=== PATIENT | male | born 1985 | race Hispanic/Latino ===

== ENCOUNTER → 2021-05-27 13:01 | Outpatient (CLI) | payer OTHER, SELFPAY ==
--- NOTE | 2021-05-27 | DI.MRI.S_ITS ---
PROCEDURE: MR KNEE LT WO CON INDICATIONS: Sprain of medial collateral ligament of left knee, TECHNIQUE: Noncontrast sagittal PD fast spin echo and T2 fast spin echo with fat saturation, sagittal 3-D FLASH with fat saturation; coronal T1 spin echo and PD fast spin echo with fat saturation, and axial PD fast spin echo with fat saturation through the knee. COMPARISON: None. FINDINGS: Image quality: Excellent. Menisci: The medial and lateral menisci demonstrate normal morphology and internal signal. The meniscal root ligaments appear intact. Cruciate ligaments: The anterior and posterior cruciate ligaments appear intact. Medial structures: The medial collateral ligament appears intact. The posterior oblique ligament, semimembranosus tendon insertions, oblique popliteal ligament, and meniscocapsular junction appear intact. Visualized portions of the pes anserinus tendons appear normal. Bursal fluid is seen, measuring 1.4 x 0.6 cm. Lateral structures: The lateral collateral ligament, long and short heads of the biceps femoris tendon appear intact. The popliteus tendon appears normal; the popliteofibular ligament appears intact. The posterosuperior and anteroinferior popliteomeniscal fascicles appear intact. The arcuate and fabellofibular ligaments appear intact, on either side of the lateral inferior geniculate artery. Iliotibial band appears normal. Anterior structures: The quadriceps and patellar tendons appear intact. Patellar alignment is normal. No femoral trochlear dysplasia or ventral trochlear prominence. No edema in the infrapatellar fat pad. Bones and cartilage: No bone marrow contusions or fractures. Minimal signal heterogeneity and fissuring of the trochlear cartilage The remain cartilage of the medial and lateral femorotibial compartments, as well as the patellofemoral compartment, appears normal in thickness. Joint space: Small knee joint fluid. Trace Chaparro's cyst. Normal appearing synovial plicae are incidentally noted. IMPRESSION: 1. Pes anserine bursitis. 2. Mild chondromalacia of the trochlear cartilage. Dictated by: Jason Muhammad M.D. on 05/27/2021 at 14:47 Approved by: aJson Muhammad M.D. on 05/27/2021 at 14:51
== END ==
PROVIDERS: Referring Provider Orthopaedic Surgery; Visit Provider Orthopaedic Surgery
DX: S83.412A Sprain of medial collateral ligament of left knee, initial encounter (principal); M94.262 Chondromalacia, left knee; M70.52 Other bursitis of knee, left knee
CPT/HCPCS: 73721

== ENCOUNTER → 2021-07-12 13:39 | Outpatient (CLI) | payer OTHER, SELFPAY ==
--- NOTE | 2021-07-12 13:41 | DI.MRI.S_ITS ---
PROCEDURE: MR HAND RT WO CON INDICATIONS: SPRAIN OF METACARPOPHALANGEAL JOINT/FINGER TECHNIQUE: Noncontrast coronal T1 spin echo and T2 fast spin echo with fat saturation, axial proton density fast spin echo and T2 fast spin echo with fat saturation, sagittal T1 spin echo and STIR through the hand and fingers. COMPARISON: [facility] [place], CR, XR HAND 3+ VIEWS RIGHT, 05/09/2021, 14:26. FINDINGS: Image quality: Excellent. Bones: The bones are normally aligned, without marrow contusions or fractures. No intra-osseous lesions. Interphalangeal joint(s): The collateral ligaments appear intact. The volar plate demonstrates normal morphology. The extensor central slips appear intact on sagittal images. Metacarpophalangeal joint(s): The collateral ligaments appear intact, as well as the volar plate and adjacent deep transverse metacarpal ligaments. The sagittal bands of the extensor mata appear normal. Extensor apparatus: The central slips insert normally on the middle phalangeal base. The conjoint and terminal tendons insert normally on the distal phalangeal bases. More proximal portions of the extensor tendons also appear normal. Flexor apparatus: The flexor digitorum superficialis and profundus tendons both appear intact. All pulleys appear intact, without adjacent soft tissue edema. Soft tissues: Visualized muscles demonstrate normal bulk and internal signal. No intramuscular masses identified. No ganglion cysts. IMPRESSION: No significant abnormality. Dictated by: Jason Muhammad M.D. on 07/12/2021 at 19:07 Approved by: Jason Muhammad M.D. on 07/12/2021 at 19:12
== END ==
PROVIDERS: Referring Provider Orthopaedic Surgery; Visit Provider Orthopaedic Surgery
DX: S63.65 Sprain of metacarpophalangeal joint of other and unspecified finger(s) (principal); X58.XXXS Exposure to other specified factors, sequela
CPT/HCPCS: 73218

== ENCOUNTER 2021-09-23 08:40 | Emergency (ER) | payer OTHER, SELFPAY ==
--- NOTE | 2021-09-23 09:19 | ED_ITS ---
HPI - Skin/Abscess/Foreign Bdy General Chief complaint: Wound/Laceration Stated complaint: dog bite Time Seen by Provider: 09/23/21 09:12 History of Present Illness HPI narrative: Patient is a healthy 36-year-old male who presents with left thumb laceration and dog bite. He said last night he was feeding his dog they are known to have food of depression. His dog was in the kennel but the door was not shot all of way well he was feeding a little dogs big dog came and a sharp tooth got right across his thumb. He rinsed it out and washed it came in this morning it still hurts. It still mildly bleeding. Dog's shots and patient's shots are up-to-date. He has children at home. We discussed dog bites. He says it only happens around food kids are not around when he feeds the dogs. Related Data Previous Rx's Medication Instructions Recorded amoxicillin 875 mg-potassium 1 tab PO BID #14 tab 09/23/21 clavulanate 125 mg tablet Allergies Allergy/AdvReac Type Severity Reaction Status Date / Time No Known Drug Allergies Allergy Verified 09/23/21 09:33 Review of Systems Review of Systems Narrative: GENERAL: Denies chills,fever HEENT: Denies throat pain RESPIRATORY: Denies dyspnea, cough, wheezing CARDIOVASCULAR: Denies chest pain, palpitations GASTROINTESTINAL: Denies nausea, vomiting MUSCULOSKELETAL: Denies extremity pain, injury SKIN: lacertation, see HPI NEUROLOGIC: Denies weakness, dizziness, headache, numbness 8 point review of systems is negative except for those stated above and HPI Patient History Social History Smoking Status: Former smoker Exam Initial Vital Signs Initial Vital Signs: Vital Signs Temperature 98.4 F 09/23/21 09:20 Pulse Rate 70 09/23/21 09:20 Respiratory Rate 16 09/23/21 09:20 Blood Pressure 178/94 H 09/23/21 09:20 Pulse Oximetry 98 09/23/21 09:20 GENERAL: Well-appearing, well-nourished and in no acute distress. CARDIOVASCULAR: peripheral pulses in tact, cap refill <2 sec RESPIRATORY: No respiratory distress, speaks in full sentences without difficulty EXTREMITIES: Normal range of motion, no clubbing or edema. Neurovascularly intact, Left thumb sensation in intact at tip it hurts to flex but he is able to do so however does open the laceration NEUROLOGICAL: Cranial nerves II through XII grossly intact. Normal gait and speech. SKIN: Left thumb laceration 2cm at ED DIP Course Orders Ordered: Discontinued Medications Ibuprofen (Ibuprofen 400 Mg Tablet) 800 mg PO NOW ONE Stop: 09/23/21 09:35 Last Admin: 09/23/21 09:41 Dose: 800 mg Documented by: ASHTYN Vital Signs Vital signs: Vital Signs - 8 hr 09/23/21 09:20 Temperature 98.4 F Pulse Rate 70 Respiratory Rate 16 Blood Pressure 178/94 H Pulse Oximetry 98 MDM - Skin/Abscess/Foreign Bdy MDM Narrative Medical decision making narrative: Wound has been open for about 12 hours. Not safe to close at this time Steri- Strips were placed. Patient states that he saw his tendon last night and he sure it was intact. He is able to bend it is I do not see tendon at this time. It is swollen. He is given antibiotics. I instructed him to watch it very carefully I do worry about this getting significantly more infected however he has minimal erythema at this time. Discharge Plan Departure Patient Disposition: Home Clinical Impression: Dog bite of left thumb Instructions: Animal Bites Activity Restrictions/Additional Instructions: *You have been diagnosed with dog bite *What to do: At this time please elevate and ice. Monitor very carefully so that he attended does not get infected *Continue to take medications as directed Augmentin 875 mg twice a day X 7 days Motrin 800 mg every 8 hours needed for [id number] pain Tylenol 650 mg every 6 hours if needed for [id number] pain *Follow up with your primary care provider in 2-3 days or call [phone] *Return to ER if you should have increasing redness pain throbbing or any new, worsening or concerning symptoms Prescriptions: New amoxicillin-pot clavulanate 875-125 mg tablet 1 tab PO BID Qty: 14 0RF
[2021-09-23 09:20] VITALS: BP 178/94; PULSE 70; RESP 16; TEMP 36.9; O2SAT 98; BMI 29.0
[2021-09-23] MEDS: IBUPROFEN 400 MG TABLET 800 MG PO (09:41)
== END 2021-09-23 10:14 | disposition home or self-care (01) ==
PROVIDERS: Emergency Provider Emergency Medicine
DX: S61.052A Open bite of left thumb without damage to nail, initial encounter (principal); W54.0XXA Bitten by dog, initial encounter
CPT/HCPCS: 99282; 99283

== ENCOUNTER 2023-05-23 17:45 | Emergency (ER) | payer OTHER, SELFPAY ==
[2023-05-23 17:50] VITALS: BP 132/85; PULSE 70; RESP 16; TEMP 36.7; O2SAT 98; BMI 28.7
--- NOTE | 2023-05-23 18:24 | ED.URI ---
HPI - URI/Sore Throat <Corrine Clarke PA-C - Last Filed: 05/23/23 18:27> General Chief Complaint: Upper Respiratory Symptoms Stated Complaint: cough x 4 days Time Seen by Provider: 05/23/23 18:22 Source: patient Mode of arrival: Family Vehicle History of Present Illness HPI Narrative: Patient is a 38-year-old male nonsmoker with no significant past medical history. He presents with his 2 young sons. He has had a cough and intermittent sore throat x2 weeks. He denies fever or chills. He has a history of recurrent strep throat with a peritonsillar abscess. He has been trying to take DayQuil and drink plenty of water. He denies any difficulty breathing, chest pain or shortness of breath, except when coughing. He took a home COVID test and it was negative. Related Data Allergies Allergy/AdvReac Type Severity Reaction Status Date / Time No Known Drug Allergies Allergy Verified 09/23/21 09:33 Review of Systems <Corrine Clarke PA-C - Last Filed: 05/23/23 18:27> Review of Systems ROS Unobtainable: All systems reviewed & are unremarkable except as noted in HPI and below Patient History <Corrine Clarke PA-C - Last Filed: 05/23/23 18:27> Social History Smoking Status: Former smoker Smoking Status: Former smoker alcohol intake frequency: 0-2 drinks per day Substance Use Type: does not use Exam <Corrine Clarke PA-C - Last Filed: 05/23/23 18:27> Narrative Exam Narrative: GENERAL: 38 year old patient appears stated age. Well-developed patient, in no acute distress. NEURO: AOx3. HEAD: Atraumatic. Normocephalic. EYES: Pupils equal round and reactive. Extraocular motions intact. No scleral icterus. No injection or drainage. ENT: Nose without bleeding or purulent drainage. TMs pearly palmer. Throat with mild erythema, no tonsillar hypertrophy or exudate. Uvula midline. Airway patent. NECK: Trachea midline. Tender left anterior cervical adenopathy. CARDIOVASCULAR: Regular rate and rhythm without murmurs, gallops, or rubs. RESPIRATORY: Clear to auscultation. Breath sounds equal bilaterally. No wheezes, rales, or rhonchi. SKIN: No rash or erythema of visible areas Initial Vital Signs Initial Vital Signs: Vital Signs Temperature 98.1 F 05/23/23 17:50 Pulse Rate 70 05/23/23 17:50 Respiratory Rate 16 05/23/23 17:50 Blood Pressure 132/85 05/23/23 17:50 Pulse Oximetry 98 05/23/23 17:50 Oxygen Delivery Method Room Air 05/23/23 17:50 <DO Ivelisse Morejon Last Filed: 05/23/23 18:43> Initial Vital Signs Initial Vital Signs: Vital Signs Temperature 98.1 F 05/23/23 17:50 Pulse Rate 70 05/23/23 17:50 Respiratory Rate 16 05/23/23 17:50 Blood Pressure 132/85 05/23/23 17:50 Pulse Oximetry 98 05/23/23 17:50 Oxygen Delivery Method Room Air 05/23/23 17:50 Course <CRALOS Dominguez Last Filed: 05/23/23 18:27> Vital Signs Vital signs: Vital Signs - 8 hr 05/23/23 17:50 Temperature 98.1 F Pulse Rate 70 Respiratory Rate 16 Blood Pressure 132/85 Pulse Oximetry 98 Oxygen Delivery Method Room Air <DO Ivelisse Morejon Last Filed: 05/23/23 18:43> Vital Signs Vital signs: Vital Signs - 8 hr 05/23/23 17:50 Temperature 98.1 F Pulse Rate 70 Respiratory Rate 16 Blood Pressure 132/85 Pulse Oximetry 98 Oxygen Delivery Method Room Air MDM - URI/Sore Throat <CARLOS Dominguez Last Filed: 05/23/23 18:27> MDM Narrative Medical decision making narrative: Multiple etiologies for patient's symptoms considered including, but not limited to: Viral respiratory infection, bronchitis, pneumonia, asthma, strep throat, peritonsillar abscess. Patient is history and physical exam consistent with bronchitis. No evidence of strep throat or peritonsillar abscess. Vital signs within normal limits. Patient appears tired but not unwell. Advised continue supportive therapy. Return precautions advised. Patient's symptoms improved over duration of stay with above-stated therapies. Findings and discharge diagnosis discussed with patient/family followed by verbalization of understanding Return precautions discussed with patient/family whom verbalize understanding of diagnosis and plan Discharge Plan Departure Patient Disposition: Home Clinical Impression: Bronchitis Instructions: DI for Acute Bronchitis Activity Restrictions/Additional Instructions: *You have been diagnosed with viral bronchitis. Your symptoms and clinical exam are most consistent with a viral bronchitis. I would advised rest, hydration, tylenol/motrin for fever/aches, honey for sore throat/cough. Antibiotics are not indicated for this diagnosis. Most viral infections will resolve in 7-10 days, although a lingering cough is common for up to 3 weeks. If fever lasts consistently >5 days or if you develop difficulty breathing or other concerning symptoms, please seek care at walk-in clinic or ER. Stay home until no fever for 24 hours. *What to do: *Please continue to take your regular medications as directed. [ ] New medication prescriptions sent to your pharmacy: [ ] [ ] New medication written as a paper prescription [x] No new medications given *Please follow up with your primary care provider in 2-3 days, call for an appointment. Let them know you were seen in the Emergency Department and that we ask that you be seen in follow up. We will electronically transmit a record of today's note if your PCP is in our system *If you do not have a primary care provider please contact the [facility] Resource line at [phone]. They will ask some questions about your medical history and help get you set up with a doctor in the community. *Return to Emergency Department if you should have any new, worsening or concerning symptoms, such as [fever greater than 101 F, shaking chills, worsening pain, persistent vomiting or other concerning symptoms]. Prescriptions: Discontinued amoxicillin-pot clavulanate 875-125 mg tablet 1 tab PO BID Qty: 14 0RF Referrals: Leyla Raman DO [Primary Care Provider] - Stand Alone Forms: Patient Portal/API ED Sign-out <Papo Celeste DO - Last Filed: 05/23/23 18:43> Cosign ED Attending Cosignature Attestation: Dr Celeste Co-Sign Statement: I was available for consultation during this patient's emergency department visit. This chart is signed by myself for administrative purposes only. I did not have direct contact with this patient during this visit. They were seen independently by the APC.
== END 2023-05-23 18:28 | disposition home or self-care (01) ==
PROVIDERS: Emergency Provider Physician Assistant; PCP Family Medicine
DX: J40 Bronchitis, not specified as acute or chronic (principal)
CPT/HCPCS: 99281